=== PATIENT | male | born 1995 | race Caucasian/White ===

== ENCOUNTER 2019-03-10 15:11 | Emergency (ER) | payer MEDICAID, OTHER ==
[~2019-03-10] VITALS: Ht 177.8 cm; Wt 93.0 kg
[2019-03-10 15:28] VITALS: BP 141/77
--- NOTE | 2019-03-10 15:50 | NUR ---
DR WOLF AT BEDSIDE
[2019-03-10] MEDS ORDERED: ALBUTEROL SULFATE/IPRATROPIU 3 ML SOL IH ONE (15:55)
--- NOTE | 2019-03-10 16:00 | NUR ---
C/O SOB X 1 DAY. PT REPORTS HAVING A "RED/WHITE" INHALER TO USE AT HOME BUT IT IS NOT HELPING. O2 SAT RA 97%, NO LABORED BREATHING NOTICED, VOICE HOARSE. WHEEZING BILATERALLY UPON EXPIRATION. PT DENIES HX OF ASTHMA, RECENT ILLNESS- NON-PRODUCTIVE COUGH. AA0X4. BED IS DOWN, LOCKED, BED RAIL X 1, ERMD TO SEE PT. HX: NONE RX: NONE
--- NOTE | 2019-03-10 16:19 | NUR ---
[facility] ORDERED ENCOURAGED PATIENT FOR INTERMITTENT DEEP BREATHING DURING THERAPY
[2019-03-10] MEDS ORDERED: methylPREDNISolone SS 125 MG/2 ML VIAL IM ONE (16:30)
[2019-03-10 17:13] VITALS: BP 136/81
--- NOTE | 2019-03-10 17:13 | NUR ---
Patient discharged with v/s stable. Written and verbal after care instructions given and explained. Patient alert, oriented and verbalized understanding of instructions. Ambulatory with steady gait. All questions addressed prior to discharge. ID band removed. Patient advised to follow up with PMD. Rx of ALBUTEROL AND PREDNISONE given. Patient educated on indication of medication including possible reaction and side effects. Opportunity to ask questions provided and answered.
== END 2019-03-10 17:13 | disposition home or self-care (01) ==
LOC: MED 15:11
DX: J45.909 Unspecified asthma, uncomplicated (principal)
CPT/HCPCS: 94640; 96372; 99283; J2930; J7620